=== PATIENT | female | born 1995 ===

== ENCOUNTER 2022-12-31 14:31 | Emergency (ER) | payer OTHER ==
[~2022-12-31] VITALS: Ht 152.4 cm; Wt 62.6 kg
[2022-12-31] MEDS ORDERED: CARAFATE1 GM PO (19:58)
[2022-12-31] MEDS ORDERED: ONDANSETRON ODT8 MG PO (19:58)
[2022-12-31] MEDS ORDERED: PEPCID AC20 MG PO (19:58)
== END 2022-12-31 20:16 | disposition home or self-care (01) ==
LOC: ER 14:31
DX: R10.13 Epigastric pain (principal); K29.70 Gastritis, unspecified, without bleeding; Z20.822 Contact with and (suspected) exposure to COVID-19; Z88.8 Allergy status to other drugs, medicaments and biological substances